=== PATIENT | female | born 1970 | race Caucasian/White ===

== ENCOUNTER 2020-12-19 19:12 | Emergency (ER) | payer OTHER ==
--- NOTE | 2020-12-19 20:05 | EDM.PDOC ---
ED HPI GENERAL MEDICAL PROBLEM - General Chief Complaint: Eye Problems Stated Complaint: RT EYE PAIN - POSS SHINGLES Time Seen by Provider: 12/19/20 19:33 Source of Information: Reports: Patient, Family () History Limitations: Reports: No Limitations - History of Present Illness INITIAL COMMENTS - FREE TEXT/NARRATIVE: Mrs. Barriga is a very pleasant 50-year-old woman with a past medical history significant for psoriasis and psoriatic arthritis, who now presents the ED with a concern that she may have shingles. She states that she developed right scalp tenderness about 4 to 5 days ago, then developed right ear soreness and tenderness today, along with an intermittent itchy pain to her right eye. She states that her right eye feels like it was scratched. No visual changes. She also developed a small rash to her right forehead, prompting her concern that this all may be due to shingles. No recent fever. The patient states that she met with her PCP by Skype today, and was instructed to come to the ED. She has not taken any [id number] or home remedies to try to treat her symptoms. Here in the ED, the patient's initial BP is found to be elevated at 166/94, otherwise, she is hemodynamically stable, afebrile, saturating 90% on room air. Prior to 4 to 5 days ago, the patient denies having a recent fever, chills, sore throat, ear pain, nasal or sinus congestion, cough, dyspnea, chest pain, palpitations, nausea, vomiting, constipation, diarrhea, abdominal pain, urinary symptoms, recent weight gain or weight loss, recent bloody bowel movements or black bowel movements, recent joint aches, headaches, or rashes. The patient's PCP, Kaitara Taraka, and Manager [employer] are all in [place], [place]. Right Head Pain Score (Numeric/FACES): 4 - Related Data Allergies Allergy/AdvReac Type Severity Reaction Status Date / Time sulfamethoxazole Allergy Cannot Verified 12/19/20 19:26 [From Bactrim] Remember trimethoprim [From Bactrim] Allergy Cannot Verified 12/19/20 19:26 Remember Home Meds: Home Meds Apremilast [Otezla] 1 tab PO BID 12/19/20 [History] Celecoxib [CeleBREX] 200 mg PO BID 12/19/20 [History] prednisoLONE Acetate [Prednisolone Acetate] 1 - 2 drop EYERT Q6H #5 ml 12/19/20 [Rx] valACYclovir [Valtrex] 1 tab PO Q8H #21 tablet 12/19/20 [Rx] Past Medical History Musculoskeletal History: Reports: Other (See Below) (Psoriatic arthritis) Dermatologic History: Reports: Psoriasis - Past Surgical History HEENT Surgical History: Reports: Oral Surgery (dental extractions) GI Surgical History: Reports: Cholecystectomy (around 2010) Female Surgical History: Reports: Section (x 1) Social & Family History - Tobacco Use Tobacco Use Status *Q: Former Tobacco User Years of Tobacco use: 27 Packs/Tins Daily: 1 Month/Year Tobacco Last Used: Quit 2019 Tobacco Use Comment: Started smoken at 21 yrs old Second Hand Smoke Exposure: No - Caffeine Use Caffeine Use: Reports: Coffee - Alcohol Use Alcohol Use History: Yes Alcohol Use Frequency: Socially - Recreational Drug Use Recreational Drug Use: No - Living Situation & Occupation Living situation: Reports: , with Spouse 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 ED EXAM, GENERAL - Physical Exam Exam: See Below Exam Limited By: No Limitations General Appearance: Alert, WD/WN, No Apparent Distress Eye Exam: Bilateral Eye: EOMI, Normal Inspection Ears: Hearing Grossly Normal, Other (Dry/scaly skin to the external right ear, consistent with psoriasis) Nose: Normal Inspection Throat/Mouth: Normal Inspection, Normal Lips, Normal Voice, No Airway Compromise Head: Atraumatic, Other (Right scalp tenderness. Sparse psoriasis. No erythematous or vesicular rash seen. There is an approximately 1 cm diameter slightly raised, mildly erythematous patch to the right forehead. This is tender to palpation.) Neck: Normal Inspection, Full Range of Motion Neurological: Alert, Oriented, Normal Cognition, No Motor/Sensory Deficits Psychiatric: Normal Affect Skin Exam: Warm, Dry, Intact, Normal Color Course - Vital Signs Last Recorded V/S: Last Vital Signs Temp 37.0 C 12/19/20 19:23 Pulse 91 12/19/20 19:23 Resp 20 12/19/20 19:23 BP 166/94 H 12/19/20 19:23 Pulse Ox 98 12/19/20 19:23 - Re-Assessments/Exams Free Text/Narrative Re-Assessment/Exam: 12/19/20 19:56 As above, the patient has had right scalp tenderness on and off for the past 4 to 5 days, then developed intermittent pain in her right eye, that feels like there is either something in her eye or a scratched cornea, however, there are no vision changes, and her eye exam is completely normal. She also developed an approximately 1 cm patch of erythema on her right forehead, prompting her to be concerned that her symptoms are due to shingles, however, there are no vesicular lesions anywhere on her face or scalp, thus my suspicion for shingles is quite low. That being said, if this is shingles involving her eye, that can be site-threatening, therefore I believe it would be prudent to be conservative in management, therefore I will prescribe for her valacyclovir and ophthalmic prednisolone drops that she can start tonight. I would also like her to then follow-up with an eye doctor this week - Katie HOLT will try to find her a name and number. Departure - Departure Time of Disposition: 19:58 Disposition: Home, Self-Care 01 Condition: Good Clinical Impression: Scalp tenderness, Pain in right eye - Discharge Information *PRESCRIPTION DRUG MONITORING PROGRAM REVIEWED*: Not Applicable *COPY OF PRESCRIPTION DRUG MONITORING REPORT IN PATIENT GABI: Not Applicable Prescriptions: prednisoLONE Acetate [Prednisolone Acetate] 1 - 2 drop EYERT Q6H #5 ml valACYclovir [Valtrex] 1 tab PO Q8H #21 tablet Referrals: PCP,Not In Area [Ordering Only Provider] - Forms: ED Department Discharge Additional Instructions: You were seen in the emergency room for right scalp and ear tenderness for the past 4 to 5 days, followed by a small rash to your right forehead with intermittent right eye pain, today. Although your symptoms are most likely not due to shingles, we are recommending treatment for shingles, as shingles to your eye, if present, can threaten your eyesight. Prescriptions for the anti-viral medicine valacyclovir (Valtrex) and the steroid prednisolone have been sent to the [facility], located in the [facility] grocery store. Take 1 tablet of valacyclovir every 8 hours, as prescribed, starting tonight. Finish the entire 7-day course unless told otherwise by a doctor. Instill 1 to 2 drops of prednisolone into your right eye every 6-12 hours, as prescribed, starting tonight. Finish a 7-day course unless told otherwise by an eye doctor. As discussed, we recommend that you follow-up with an eye doctor this week. If you cannot get into see an eye doctor, we recommend that you follow-up with your PCP in [place]. If any other problems, please do not hesitate to return to the ER. Sepsis Event Note (ED) - Evaluation Sepsis Screening Result: No Definite Risk - Focused Exam Vital Signs: Vital Signs Temp Pulse Resp BP Pulse Ox 12/19/20 19:23 37.0 C 91 20 166/94 H 98
== END 2020-12-19 20:21 | disposition home or self-care (01) ==
LOC: JD.ED 19:12
DX: H57.11 Ocular pain, right eye (principal); L98.8 Other specified disorders of the skin and subcutaneous tissue; L40.9 Psoriasis, unspecified; Z87.891 Personal history of nicotine dependence; Z88.2 Allergy status to sulfonamides; Z88.1 Allergy status to other antibiotic agents; Z79.899 Other long term (current) drug therapy
CPT/HCPCS: 99282; 99283

== ENCOUNTER 2021-06-22 12:57 | Emergency (ER) | payer OTHER ==
[2021-06-22] MEDS ORDERED: Sodium Chloride 0.9% 10 ML Syringe FLUSH PRN (15:04)
--- NOTE | 2021-06-22 15:19 | EDM.PDOC ---
ED HPI GENERAL MEDICAL PROBLEM - General Chief Complaint: Fever Stated Complaint: COVID + \FEVER Time Seen by Provider: 06/22/21 14:42 Source of Information: Reports: Patient, RN Notes Reviewed History Limitations: Reports: No Limitations - History of Present Illness INITIAL COMMENTS - FREE TEXT/NARRATIVE: Patient is a 51-year-old female presenting to the emergency department with complaints of ongoing Covid symptoms. She was diagnosed Covid positive on June 14 which is when she states her symptoms began. She complains of cough, mild shortness of breath, fevers fatigue, occasional diarrhea, and a few episodes of vomiting over the course of her illness. She denies any chest pain or abdominal pain. She is unvaccinated. She has a history of psoriatic arthritis for which she is taking Otezla. She also takes Celebrex, however she stopped taking this medication when she was diagnosed with Covid. She has not taken any prescription medications for treatment of COVID-19 and has not been previously evaluated for it. Throat Pain Score (Numeric/FACES): 2 - Related Data Allergies Allergy/AdvReac Type Severity Reaction Status Date / Time sulfamethoxazole Allergy Cannot Verified 06/22/21 14:10 [From Bactrim] Remember trimethoprim [From Bactrim] Allergy Cannot Verified 06/22/21 14:10 Remember Home Meds: Home Meds Apremilast [Otezla] 30 mg PO BID 12/19/20 [History] Celecoxib [CeleBREX] 200 mg PO BID 12/19/20 [History] Cholecalciferol (Vitamin D3) [Vitamin D3] 1,000 unit PO DAILY 06/22/21 [History] Vitamin B Complex 1 tab PO DAILY 06/22/21 [History] Zinc 50 mg PO DAILY 06/22/21 [History] dexAMETHasone [Decadron] 6 mg PO DAILY #4 tablet 06/22/21 [Rx] Past Medical History Musculoskeletal History: Reports: Other (See Below) Other Musculoskeletal History: psoriatic arthritis Dermatologic History: Reports: Psoriasis - Infectious Disease History Infectious Disease History: Reports: Novel Coronavirus - Past Surgical History HEENT Surgical History: Reports: Oral Surgery GI Surgical History: Reports: Cholecystectomy Female Surgical History: Reports: Section Social & Family History - Family History Family Medical History: No Pertinent Family History - Tobacco Use Tobacco Use Status *Q: Never Tobacco User Second Hand Smoke Exposure: No - Caffeine Use Caffeine Use: Reports: Coffee - Alcohol Use Days Per Week of Alcohol Use: 4 Number of Drinks Per Day: 2 Total Drinks Per Week: 8 - Recreational Drug Use Recreational Drug Use: No - Living Situation & Occupation Living situation: Reports: , with Spouse 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 Denies: Wheezing, Pleuritic Chest Pain Cardiovascular: Reports: Lightheadedness. Denies: Chest Pain, Palpitations, Syncope Endocrine: Reports: No Symptoms GI/Abdominal: Reports: Diarrhea, Nausea, Vomiting. Denies: Abdominal Pain : Reports: No Symptoms Musculoskeletal: Reports: No Symptoms Skin: Reports: No Symptoms Neurological: Reports: Dizziness. Denies: Confusion Psychiatric: Reports: No Symptoms Hematologic/Lymphatic: Reports: No Symptoms Immunologic: Reports: No Symptoms ED EXAM, GENERAL - Physical Exam Exam: See Below Exam Limited By: No Limitations General Appearance: Alert, WD/WN, No Apparent Distress Ears: Normal External Exam, Normal Canal, Hearing Grossly Normal, Normal TMs Throat/Mouth: Normal Inspection, Normal Lips, Normal Teeth, Normal Gums, Normal Oropharynx, Normal Voice, No Airway Compromise Respiratory/Chest: No Respiratory Distress, Lungs Clear, Normal Breath Sounds, No Accessory Muscle Use, Chest Non-Tender Cardiovascular: Normal Peripheral Pulses, Regular Rate, Rhythm, No Edema, No Gallop, No JVD, No Murmur, No Rub GI/Abdominal: Normal Bowel Sounds, Soft, Non-Tender, No Organomegaly, No Distention, No Abnormal Bruit, No Mass Neurological: Alert, Oriented, CN II-XII Intact, Normal Cognition, Normal Gait, Normal Reflexes, No Motor/Sensory Deficits Psychiatric: Normal Affect, Normal Mood Skin Exam: Warm, Dry, Intact, Normal Color, No Rash #1 Interpretation EKG Date: 06/22/21 Time: 15:31 Rhythm: NSR Rate (Beats/Min): 82 [employer]: LAD-Left [employer] Deviation (borderline) P-Wave: Present QRS: Normal ST-T: Normal QT: Normal Course - Vital Signs Last Recorded V/S: Last Vital Signs Temp 100.4 F 06/22/21 14:04 Pulse 81 06/22/21 14:04 Resp 16 06/22/21 14:04 BP 117/73 06/22/21 14:04 Pulse Ox 95 06/22/21 14:04 - Orders/Labs/Meds Labs: Laboratory Tests 06/22/21 06/22/21 06/22/21 Range/Units 15:18 15:18 15:18 WBC 4.54 (3.98-10.04) K/mm3 RBC 4.52 (3.98-5.22) M/mm3 Hgb 13.4 (11.2-15.7) gm/dl Hct 40.1 (34.1-44.9) % MCV 88.7 (79.4-94.8) fl MCH 29.6 (25.6-32.2) pg MCHC 33.4 (32.2-35.5) g/dl RDW Std Deviation 43.2 (36.4-46.3) fL Plt Count 139 L (182-369) K/mm3 MPV 12.0 (9.4-12.3) fl Neut % (Auto) 70.4 (34.0-71.1) % Lymph % (Auto) 21.1 (19.3-51.7) % [place] % (Auto) 8.1 (4.7-12.5) % Eos % (Auto) 0 L (0.7-5.8) Baso % (Auto) 0.4 (0.1-1.2) % Neut # (Auto) 3.19 (1.56-6.13) K/mm3 Lymph # (Auto) 0.96 L (1.18-3.74) K/mm3 [place] # (Auto) 0.37 H (0.24-0.36) K/mm3 Eos # (Auto) 0.00 L (0.04-0.36) K/mm3 Baso # (Auto) 0.02 (0.01-0.08) K/mm3 Manual Slide Review Abnormal smear D-Dimer, Quantitative 0.70 H (0.19-0.50) mg/L Sodium 138 (136-145) mEq/L Potassium 3.2 L (3.5-5.1) mEq/L Chloride 99 (98-107) mEq/L Carbon Dioxide 28 (21-32) mEq/L Anion Gap 14.2 (5-15) BUN 13 (7-18) mg/dL Creatinine 0.9 (0.55-1.02) mg/dL Est Cr Clr Drug Dosing 72.72 mL/min Estimated GFR (MDRD) > 60 (>60) mL/min BUN/Creatinine Ratio 14.4 (14-18) Glucose 96 (70-99) mg/dL Calcium 8.8 (8.5-10.1) mg/dL Total Bilirubin 0.6 (0.2-1.0) mg/dL AST 44 H (15-37) U/L ALT 54 (14-59) U/L Alkaline Phosphatase 48 (46-116) U/L Troponin I < 0.017 (0.00-0.056) ng/mL C-Reactive Protein 6.5 H* (<1.0) mg/dL Total Protein 7.4 (6.4-8.2) g/dl Albumin 3.5 (3.4-5.0) g/dl Globulin 3.9 gm/dL Albumin/Globulin Ratio 0.9 L (1-2) Meds: Medications Discontinued Medications Generic Name Dose Route Start Last Admin Trade Name Freq PRN Reason Stop Dose Admin Dexamethasone 6 mg 06/22/21 15:56 06/22/21 16:49 Dexamethasone 4 Mg Tab PO 06/22/21 15:57 6 mg ONETIME ONE Administration Diphenhydramine HCl 50 mg 06/22/21 15:53 Diphenhydramine 50 Mg/Ml Sdv IVPUSH ASDIRECTED PRN hypersensitivity reaction Epinephrine HCl 0.3 mg 06/22/21 15:53 Epinephrine 1 Mg/Ml Sdv IM ASDIRECTED PRN hypersensitivity reaction Famotidine 20 mg 06/22/21 15:53 Famotidine 20 Mg/2 Ml Sdv IVPUSH ASDIRECTED PRN hypersensitivity reaction CASIRIVIMAB/IMDEVIMAB 10 ml/ 110 mls @ 220 mls/hr 06/22/21 16:30 06/22/21 16:49 Sodium Chloride IV 06/22/21 16:59 220 mls/hr ONETIME ONE Administration Methylprednisolone Sodium Succinate 125 mg 06/22/21 15:53 Methylprednisolone Sodium Succinate 125 Mg/2 Ml Sdv IVPUSH ASDIRECTED PRN hypersensitivity reaction Sodium Chloride 10 ml 06/22/21 15:04 Sodium Chloride 0.9% 10 Ml Syringe FLUSH ASDIRECTED PRN Keep Vein Open Sodium Chloride 30 ml 06/22/21 16:00 Sodium Chloride 0.9% 10 Ml Syringe FLUSH ASDIRECTED RADHA - Re-Assessments/Exams Free Text/Narrative Re-Assessment/Exam: Patient is a 51-year-old female presenting to the emergency department for evaluation of Covid symptoms. She is on day 8 of her illness. Feel that her symptoms not improving. Exam is unremarkable. Lung sounds are clear to auscultation. Patient is on Otezla which is immunosuppressant, therefore she is at higher risk of severe Covid illness. Discussed monoclonal antibodies and she will let us know if she would like to proceed with this. In the meantime, have ordered blood work, chest x-ray, EKG. 06/22/21 15:56 Patient has notified nursing staff that she would like to proceed with monoclonal antibody treatment. I spoke with patient to provide information about bamlanivimab treatment I offered them the ``Patient and Caregiver EUA Bamlanivimad Fact Sheet to read and review I stated the drug has been approved by an emergency use authorization (EUA) process and has not fully been FDA reviewed or approved The patient meets the EUA requirements I discussed there are other potential treatment options that are currently not FDA approved to treat COVID-19. Offered opportunity to ask questions and all questions were answered Patient voiced understanding and agreed to proceed with treatment. I will also order dexamethasone 6 mg p.o. 06/22/21 16:42 Hematology is significant for D-dimer minimally elevated 0.70 potassium low at 3.2. CRP 6.5. This minimal elevation in D-dimer as expected given a known diagnosis of COVID-19. Chest x-ray shows minimal densities within the chest suspicious for minimal Covid pneumonia. EKG shows a normal sinus rhythm at 82 with no evidence of ischemia. Monoclonal antibodies are currently infusing. Patient has been tolerating well thus far. 06/22/21 18:43 Patient has completed her monoclonal antibody infusion 1 hour waiting period without adverse event. We will discharge her home. Discussed return precaution s. Discharge instructions as documented. Departure - Departure Time of Disposition: 18:40 Disposition: Home, Self-Care 01 Condition: Good Clinical Impression: Pneumonia due to COVID-19 virus - Discharge Information *PRESCRIPTION DRUG MONITORING PROGRAM REVIEWED*: No *COPY OF PRESCRIPTION DRUG MONITORING REPORT IN PATIENT GABI: No Prescriptions: dexAMETHasone [Decadron] 6 mg PO DAILY #4 tablet Instructions: COVID-19 Referrals: PCP,Not In Area [Primary Care Provider] - Forms: ED Department Discharge Additional Instructions: You were seen in the emergency department today for evaluation of your Covid symptoms. Work-up included blood work, chest x-ray, EKG. Results of your blood work were found to be overall normal considering her diagnosis of COVID-19. Chest x-ray showed mild Covid pneumonia. EKG showed no abnormalities. While in the ER, you received infusion of monoclonal antibodies as well as first dose of dexamethasone which is a steroid. Prescription for this medication has been sent to your pharmacy. Recommend that you go home and rest. Ensure that you are taking an adequate amount of fluid. Continue to monitor your oxygen saturations periodically. If you are maintaining a saturation below 89% or you experience any new or worsening symptoms, please do not hesitate to return to the emergency department for reevaluation.
--- NOTE | 2021-06-22 15:48 | CR ---
Chest: Portable view of the chest was obtained. Comparison: No prior chest imaging is available. Very slight areas of increased density are seen within both lung bases. Upper lung shows minimal density on the left side. Lungs otherwise are clear. Heart size and mediastinum are normal. Bony structures show nothing acute. Impression: 1. Minimal densities within the chest suspicious for minimal COVID pneumonia. Diagnostic code #2
[2021-06-22] MEDS ORDERED: Bamlanivimab 700 MG, ETESEVIMAB 1,400 MG in Sodium Chloride 0.9% 100 ML IV ONE (15:53)
[2021-06-22] MEDS ORDERED: EPINEPHrine 1 MG/ML SDV IM PRN (15:53)
[2021-06-22] MEDS ORDERED: methylPREDNISolone Sodium Succinate 125 MG/2 ML SDV IVPUSH PRN (15:53)
[2021-06-22] MEDS ORDERED: diphenhydrAMINE 50 MG/ML SDV IVPUSH PRN (15:53)
[2021-06-22] MEDS ORDERED: Famotidine 20 MG/2 ML SDV IVPUSH PRN (15:53)
[2021-06-22] MEDS ORDERED: Dexamethasone 4 MG Tab PO ONE (15:56)
[2021-06-22] MEDS ORDERED: Sodium Chloride 0.9% 10 ML Syringe FLUSH SCH (16:00)
== END 2021-06-22 18:55 | disposition home or self-care (01) ==
LOC: JD.ED 12:57
DX: U07.1 COVID-19 (principal); J12.82 Pneumonia due to coronavirus disease 2019; Z88.1 Allergy status to other antibiotic agents
CPT/HCPCS: 36415; 71045; 80053; 84484; 85025; 85379; 86140; 93005; 99285; J8540; M0243; Q0243

== ENCOUNTER 2023-04-25 19:43 | Emergency (ER) | payer OTHER ==
[2023-04-25] MEDS ORDERED: Diphtheria,Pertussis(Acell),Tetanus Vaccine 0.5 ML Syringe IM ONE (20:25)
== END 2023-04-25 20:50 | disposition home or self-care (01) ==
LOC: JD.ED 19:43
DX: S91.342A Puncture wound with foreign body, left foot, initial encounter (principal); Z88.8 Allergy status to other drugs, medicaments and biological substances; Z88.1 Allergy status to other antibiotic agents; Z86.16 Personal history of COVID-19; Z23 Encounter for immunization; W45.0XXA Nail entering through skin, initial encounter; Y99.0 Civilian activity done for income or pay
CPT/HCPCS: 90471; 90715; 99282-25